=== PATIENT | female | born 1965 | race Two or more races ===

== ENCOUNTER 2020-05-28 09:10 | Day surgery (SDC) | payer OTHER | END 2020-05-28 14:45 | disposition home or self-care (01) | LOC: AMB-ENDOS 09:10 → ADM 13:30 → AMB-ENDOS 14:45 | PROVIDERS: ATTEND Colon & Rectal Surgery | DX: D12.1 Benign neoplasm of appendix (principal); K64.1 Second degree hemorrhoids ==